=== PATIENT | female | born 1975 | race Caucasian/White ===

== ENCOUNTER 2025-04-05 03:23 | Emergency (ER) | payer OTHER, SELFPAY ==
--- NOTE | 2025-04-05 | ECG_ITS ---
Test Reason : EPIGASTRIC PAIN Blood Pressure : */* mmHG Vent. Rate : 67 BPM Atrial Rate : 67 BPM P-R Int : 174 ms QRS Dur : 90 ms QT Int : 384 ms P-R-T Axes : 57 48 44 degrees QTcB Int : 405 ms Normal sinus rhythm Normal ECG No previous ECGs available Referred By: Generic ED Physician Electronically Signed By: TAMELA TIERNEY
--- NOTE | ~2025-04-05 | CT_ITS ---
CLINICAL HISTORY: epigastric pain CT abdomen and pelvis with contrast Comparison: None provided Findings: The lung bases are clear. Cholecystectomy. Unremarkable liver and spleen. Pancreas, adrenal glands and kidneys demonstrate no acute parenchymal findings. No radiopaque stones or hydronephrosis. No bowel obstruction, pneumoperitoneum, or pneumatosis. Pelvic contents unremarkable. Normal appendix. No fluid collections or adenopathy. No vascular dilation. No acute fracture. Lower lumbar degenerative change. IMPRESSION: Status post cholecystectomy. No acute findings to explain the patient's epigastric pain. No biliary obstruction, bowel obstruction or obstructive uropathy. Unremarkable appendix. This document has been electronically signed by: Kary Sanchez MD on 04/05/2025 06:01:56
[2025-04-05 03:29] VITALS: BP 187/81; PULSE 82; RESP 18; TEMP 36.3; O2SAT 97; BMI 39.6
[2025-04-05 03:51] LABS: MANUAL DIFF FLAG NO
[2025-04-05 03:52] LABS: Hematocrit 37.7 % (37.0-47.0); Hemoglobin 12.8 g/dl (12.0-16.0); Imm Gran Abs Auto 0.01 X10*3/uL (0.00-0.03); Imm Gran Pct Auto 0.2 % (0.0-0.4); Lymphocytes Absolute Auto 2.4 X10*3/uL (1.2-4.9); Mean Corpuscular HGB Conc 34.0 g/dl (31.0-35.0); Mean Corpuscular Hemoglobin 30.8 pg (27.0-33.0); Mean Corpuscular Volume 90.8 fL (80.0-98.0); NRBC Abs Auto 0.000 X10*3/uL (0.0-0.012); NRBC Pct Auto 0.0 /100WBC (0.0-0.2); Platelet Count 185 X10*3/uL (160-400); Red Blood Count 4.15 X10*6/uL (4.20-5.50); White Blood Count 6.6 X10*3/uL (4.8-10.8)
--- NOTE | 2025-04-05 03:58 | ED_ITS ---
HPI - Abdominal Pain General Chief Complaint: Abdominal Pain Stated Complaint: abd pain Time Seen by Provider: 04/05/25 03:39 Source: patient Mode of arrival: ambulatory History of Present Illness ED Provider: Dr. Chaya Hess HPI narrative: Patient comes to the emergency room complaining of epigastric pain for 2 days. Patient states that she feels a burning like sensation, radiating towards the left upper quadrant. Patient complaining of nausea, dry heaving, no vomiting or diarrhea. Patient states that about 20 years ago she had a cholecystectomy. Patient denies any medical conditions, does not take any medications. Patient states that earlier today she drank coffee and ate supper which made the pain worse. Related Data Previous Rx's ?Medication ?Instructions ?Recorded hyoscyamine sulfate 0.125 mg tablet 0.125 mg PO QID CO N dyspepsia #14 04/05/25 tabs omeprazole 20 mg capsule,delayed 20 mg PO DAILY #90 ca ps 04/05/25 release Allergies Allergy/AdvReac Type Severity Reaction Status Date / Time Penicillins Allergy Hives Verified 04/05/25 03:32 Review of Systems Review of Systems Constitutional : No Weight loss, No Fever, No Chills, No Night Sweats, No Fatigue, No Malaise ENT/Mouth : No Hearing loss, No Ear Pain, No Nasal Congestion, No Sinus Pain, No Hoarseness, No sore throat, No Rhinorrhea, No Swallowing Difficulty Eyes: No Eye Pain, No Swelling, No Redness, No Foreign Body, No Discharge, No Vision Changes Cardiovascular : No Chest Pain, No SOB, No Dyspnea on Exertion, No Orthopnea, No Edema, No Palpitations Respiratory : No Cough, No Sputum, No Wheezing, No Smoke Exposure, No Dyspnea Gastrointestinal : Complaining of nausea and dry heaving, No Vomiting, No Diarrhea, No Constipation, complaining of epigastric burning sensation radiating towards the left upper quadrant, denies melena Genitourinary : no irregular bleeding, No Dysuria, No Urinary Frequency, No Hematuria, No Urinary Incontinence, No Urgency, No Flank Pain, No Urinary Flow Changes, No Hesitancy Musculoskeletal : No joint pain, No Myalgias, No Joint Swelling Skin : No Skin Lesions, No rash Neuro : No Weakness, No Numbness, No Paresthesias, No Loss of Consciousness, No Dizziness, No Headache Psych : No Anxiety/Panic, No Depression, No SI/HI/AH/VH, No Social Issues, Heme/Lymph: No Bruising, No Bleeding,No Lymphadenopathy Endocrine : No Polyuria, No Polydipsia, No Temperature Intolerance FOR[facility], [facility] Past Medical History Surgical History (Updated 04/05/25 @ 04:00 by Chaya Hess MD) History of cholecystectomy Social History Social History Smoked in Last 30 Days: Yes Use of substances other than those prescribed or required for medical reasons: No Advance Directives: No Advance Directives Information Provided: Yes Patient : No Physical Exam ED Exam Exam: Appearance: Alert. Oriented X3. No acute distress. Eyes: Pupils equal, round and reactive to light. ENT: Pharynx normal. Neck: Normal inspection. Neck supple. No lymph nodes noted. No crepitus CVS: Normal heart rate and rhythm. Pulses normal. Normal S1 and S2 Respiratory: No respiratory distress. Breath sounds normal. No Wheezing. No rales Abdomen: Soft , discomfort to palpation in the epigastric area, no rebound, no guarding. No rigidity. No distention. Skin: Skin warm and dry. Normal skin color. Normal skin turgor. Extremities: No lower extremity edema. No Lacerations. No Rash Neuro: Oriented X 3. No motor deficit. No sensory deficit. Moving all extremities. No slurred speech. CN 2 through 12 grossly intact Psych: calm, cooperative, normal affect Vital Signs: Vital Signs - 24 hr 04/05/25 03:29 04/05/25 04:47 Temperature 97.4 F Pulse Rate 82 Respiratory Rate 18 18 Blood Pressure 187/81 H Pulse Oximetry 97 Oxygen Delivery Method Room Air BMI result Body Mass Index 39.6 Course Course Course Narrative: Patient receiving IV fluids, famotidine, morphine and Zofran CT scan of the abdomen pending Medical Decision Making Medical Decision Making [facility] Narrative: My interpretation of EKG: Normal sinus rhythm, heart rate 67, no ST segment depression or elevation, no T-wave inversion, QTC 405 Labs: No significant abnormality in patient's hematology or chemistry, normal troponin. With the above-mentioned medication, patient states that she feels better. CT scan does not show any acute abnormality. I discussed with the patient that she likely has gastritis is versus peptic ulcer disease Overall, patient feeling much better and feels well to go home.\ Blood pressure at the time of discharge 130/70. I discussed with the patient to keep an eye on her blood pressure, to check it at home, free pharmacy such as [facility] and [facility]. And keep a log I discussed department test with the patient, she consistently has high blood pressures, she may need to be treated for hypertension. At this time, we will not start antihypertensive medications. Blood pressure was taken when patient came in anxious and in pain. Now that the patient is relaxed and pain-free, the blood pressure is back to normal Differential Diagnosis Differential Diagnoses: The differential diagnosis associated with the presentation includes (Choledocholithiasis, pancreatitis, peptic ulcer, gastritis, perforated ulcer) Admission/Observation Consideration of admission/observation: Escalation of care including admission/observation considered (Given patient's symptoms and presentation, observation/admission was considered.) Lab Data MDM Lab Attestation statement: I reviewed the patient's lab results. 04/05/25 03:45 04/05/25 03:45 Labs: Lab Results 04/05/25 Range/Units 03:45 WBC 6.6 (4.8-10.8) X10*3/uL RBC 4.15 L (4.20-5.50) X10*6/uL Hgb 12.8 (12.0-16.0) g/dl Hct 37.7 (37.0-47.0) % MCV 90.8 (80.0-98.0) fL MCH 30.8 (27.0-33.0) pg MCHC 34.0 (31.0-35.0) g/dl RDW 13.5 (11.0-16.0) % Plt Count 185 (160-400) X10*3/uL MPV 12.0 (9.4-12.3) fL Immature Gran % (Auto) 0.2 (0.0-0.4) % Neut % (Auto) 53.4 (45-73) % Lymph % (Auto) 35.8 (20-40) % [place] % (Auto) 7.3 (2-11) % Eos % (Auto) 2.7 (0-4) % Baso % (Auto) 0.6 (0-2) % Lymph # (Auto) 2.4 (1.2-4.9) X10*3/uL [place] # (Auto) 0.5 (0.1-1.2) X10*3/uL Eos # (Auto) 0.2 (0.0-0.4) X10*3/uL Baso # (Auto) 0.0 (0.0-0.2) X10*3/uL Abs Immat Gran (auto) 0.01 (0.00-0.03) X10*3/uL Absolute Neuts (auto) 3.5 (2.0-8.3) x10*3/uL Absolute Nucleated RBC 0.000 (0.0-0.012) X10*3/uL Nucleated RBC % (auto) 0.0 (0.0-0.2) /100WBC Sodium 144 (135-145) mmol/L Potassium 3.9 (3.3-5.1) mmol/L Chloride 110 H (96-108) mmol/L Carbon Dioxide 25 (22-29) mmol/L Anion Gap 13 (12-20) BUN 16 (9-16) mg/dL Creatinine 0.78 (0.5-1.4) mg/dL Estim Creat Clear Calc 97.0 Estimated GFR > 60 Random Glucose 103 (60-115) mg/dL Calcium 10.1 (8.4-10.2) mg/dL Total Bilirubin 0.2 (0.0-1.0) mg/dL AST 27 (5-31) U/L ALT 34 H (0-31) U/L Alkaline Phosphatase 57 (39-117) U/L Troponin I High Sens < 2.7 (<3.5-17.0) ng/L Total Protein 7.0 (6.5-8.0) g/dL Albumin 4.3 (3.5-5.0) g/dL Lipase 63 (8-78) U/L Independent Interpretation I performed an independent interpretation of an: EKG and CT Scan Radiology Impression Discussion of test interpretation with radiology: I have reviewed the radiologist's reading. Radiologist Impression: The lung bases are clear. Cholecystectomy. Unremarkable liver and spleen. Pancreas, adrenal glands and kidneys demonstrate no acute parenchymal findings. No radiopaque stones or hydronephrosis. No bowel obstruction, pneumoperitoneum, or pneumatosis. Pelvic contents unremarkable. Normal appendix. No fluid collections or adenopathy. No vascular dilation. No acute fracture. Lower lumbar degenerative change. IMPRESSION: Status post cholecystectomy. No acute findings to explain the patient's epigastric pain. No biliary obstruction, bowel obstruction or obstructive uropathy. Unremarkable appendix. Medications Administered Discontinued Medications Generic Name Dose Route Start Last Admin Trade Name Dongq PRN Reason Stop Dose Admin Famotidine 20 mg 04/05/25 03:58 04/05/25 04:48 Famotidine/Pf 20 Mg/2 Ml Vial IVPUSH 04/05/25 03:59 20 mg ONCE ONE Administration Sodium Chloride 1,000 mls @ 999 mls/hr 04/05/25 03:57 04/05/25 04:51 Ns IVCONT 04/05/25 04:57 999 mls/hr .Q1H1M ONE Administration Iohexol 85 ml 04/05/25 04:24 04/05/25 04:29 Iohexol 350 Mg/Ml 100 Ml Infus..Btl IV 04/05/25 04:25 85 ml ONCE ONE Administration Morphine Sulfate 2 mg 04/05/25 03:57 04/05/25 04:47 Morphine Sulfate 4 Mg/Ml Cartridge IVPUSH 04/05/25 03:58 2 mg ONCE ONE Administration Protocol Ondansetron HCl 4 mg 04/05/25 03:57 04/05/25 04:48 Ondansetron Hcl 4 Mg/2 Ml Vial IVPUSH 04/05/25 03:58 4 mg ONCE ONE Administration Critical Care Time Critical Care Time Critical Care Time: Yes Total Critical Care Time: 40 Attestation: Appearance: Alert. Oriented X3. No acute distress. Eyes: Pupils equal, round and reactive to light. ENT: Pharynx normal. Neck: Normal inspection. Neck supple. No lymph nodes noted. No crepitus CVS: Normal heart rate and rhythm. Pulses normal. Normal S1 and S2 Respiratory: No respiratory distress. Breath sounds normal. No Wheezing. No rales Abdomen: Soft and nontender. No rigidity. No distention. Skin: Skin warm and dry. Normal skin color. Normal skin turgor. Extremities: No lower extremity edema. No Lacerations. No Rash Neuro: Oriented X 3. No motor deficit. No sensory deficit. Moving all extremities. No slurred speech. CN 2 through 12 grossly intact Psych: calm, cooperative, normal affect Discharge Plan Discharge Clinical Impression: Abdominal pain, High blood pressure, Gastritis Patient Disposition: Home, Self-Care Instructions: Gastritis (ED), Heart Healthy Diet (ED) Additional Instructions: Please follow-up with your primary care physician tomorrow. If you have any worsening or new symptoms, please return to the emergency room or call 911 Prescriptions: New omeprazole 20 mg capsule,delayed release(DR/EC) 20 mg PO DAILY Qty: 90 0RF hyoscyamine sulfate 0.125 mg tablet 0.125 mg PO QID PRN (Reason: dyspepsia) Qty: 14 0RF Stand Alone Forms: Work/School Release Print Language: Romanian
[2025-04-05 04:08] LABS: Alanine Aminotransferase 34 U/L (0-31); Albumin Level 4.3 g/dL (3.5-5.0); Alkaline Phosphatase 57 U/L (39-117); Anion Gap 13 (12-20); Aspartate Amino Transferase 27 U/L (5-31); Blood Urea Nitrogen 16 mg/dL (9-16); Calcium 10.1 mg/dL (8.4-10.2); Carbon Dioxide 25 mmol/L (22-29); Chloride 110 mmol/L (96-108); Creatinine Clr Calc Pharmacy 97.0; Estimated Glomerular Filt Rate > 60; Lipase 63 U/L (8-78); Potassium 3.9 mmol/L (3.3-5.1); Sodium 144 mmol/L (135-145); Total Protein 7.0 g/dL (6.5-8.0)
--- OUTSIDE RECORDS SUMMARY | 2025-04-05 04:24 | XMS_ITS ---
Author Name [facility] Organization Unknown History of Medication Use Medication Directions Dispensed Refills Start Date End Date Stat us No known medications No known medications active Allergies Allergen Reaction Severity Comment Documented Date Source Statu s PENICILLINS RASH 09/07/2024 [facility] active Problems Problem Status Onset Date Problem Type Date of Resoluti on Source Referral of patient active EncounterDiagnosisAct [facility] Physical exam, pre-employment active EncounterDiagnosisAct [facility] Encounters Encounter Type Encounter Reason Primary Diagnosis Location Date Ambulatory Administrative Physical Encounte r for pre-employment examination [facility] 09/07/2024 Care Team Organization Name Specialty Phone Email Start Date End Da te [facility] NO PCP Primary Care 09/08
[2025-04-05] MEDS: iohexoL 350 MG/ML 100 ML INFUS..BTL 85 ML IV (04:29)
[2025-04-05 04:37] LABS: Troponin-I High Sensitivity < 2.7 ng/L (<3.5-17.0)
[2025-04-05 04:47] VITALS: RESP 18
--- NOTE | 2025-04-05 05:20 | PC.NURSE ---
at this time this RN noted pt IVF had approximately 100mL infused when reassessing pain medication effectiveness, pt stated she had to use the bathroom and that the tubing would kink based on her arm position, this secured IV tubing to prevent any downstream occlusions, NS flowing normally
[2025-04-05 06:11] VITALS: BP 130/70; PULSE 64; RESP 16; TEMP 36.4; O2SAT 99
[2025-04-05 06:37] VITALS: BP 130/70; PULSE 64; RESP 16; TEMP 36.4; O2SAT 99
== END 2025-04-05 06:38 | disposition home or self-care (01) ==
PROVIDERS: Emergency Provider Emergency Medicine
DX: R10.13 Epigastric pain (principal); R10.12 Left upper quadrant pain; R03.0 Elevated blood-pressure reading, without diagnosis of hypertension; K29.70 Gastritis, unspecified, without bleeding; R11.0 Nausea
CPT/HCPCS: 36415; 74177; 80053; 83690; 84484; 85025; 93005; 96361; 96374; 96375; 99285; J1308; J2270; J2405; Q9967

== ENCOUNTER → 2025-04-05 03:37 | Outpatient (BNV) | payer OTHER, SELFPAY | PROVIDERS: Emergency Provider Emergency Medicine; Visit Provider Internal Medicine | DX: R10.13 Epigastric pain (principal) | CPT/HCPCS: 93010 ==

== ENCOUNTER → 2025-04-05 03:56 | Outpatient (BNV) | payer OTHER, SELFPAY | PROVIDERS: Emergency Provider Emergency Medicine; Visit Provider Radiology Diagnostic Radiology | DX: R10.13 Epigastric pain (principal); Z90.49 Acquired absence of other specified parts of digestive tract | CPT/HCPCS: 74177 ==